=== PATIENT | female | born 1995 | race Native Hawaiian/Other Pacific Islander ===

== ENCOUNTER 2017-12-11 10:03 | Emergency (ER) | payer MEDICAID ==
[2017-12-11 11:16] VITALS: RESP 18; TEMP 98.4
--- NOTE | 2017-12-11 11:27 | ED PDOC ---
Arrival/HPI - General Chief Complaint: Female Genitourinary Time Seen by Provider: 12/11/17 11:08 Historian: Patient - History of Present Illness Narrative History of Present Illness (Text): 12/11/17 11:25 A 22 year old female, LMP was 11/04/17, currently , presents to the emergency department complaining of abdominal pain, lower back pain and vaginal bleeding. Reports spotting and abdominal cramping developed two days ago. Patient states heavy vaginal bleeding developed last night and used one pad since. Reports she went to a clinic 6 days ago, had a positive test and was told to follow up two weeks after. Reports she had one in the past, no history of any complications or tubal . Patient denies any nausea, dysuria or any other complaints at this time. Denies any history of hypertension and diabetes. Time/Duration: < week Symptom Onset: Sudden Symptom Course: Unchanged Activities at Onset: Rest Context: Home Past Medical History - Provider Review Nursing Documentation Reviewed: Yes - Psychiatric Hx Psychophysiologic Disorder: No Hx Substance Use: No Family/Social History - Physician Review Nursing Documentation Reviewed: Yes Family/Social History: No Known Family HX Smoking Status: Never Smoked Hx Alcohol Use: No Hx Substance Use: No Allergies/Home Meds Allergies/Adverse Reactions: Allergies No Known Allergies Allergy (Verified 12/11/17 10:17) Review of Systems - Review of Systems Constitutional: absent: Fatigue, Fevers Eyes: absent: Vision Changes ENT: absent: Hearing Changes Respiratory: absent: SOB Cardiovascular: absent: Chest Pain Gastrointestinal: Abdominal Pain. absent: Nausea, Hematochezia, Hematemesis Genitourinary Female: Vaginal Bleeding. absent: Dysuria, Hematuria, Urine Output Changes Musculoskeletal: Back Pain (lower) Skin: absent: Rash Neurological: absent: Headache, Focal Weakness Hemo/Lymphatic: absent: Easy Bleeding Psychiatric: absent: Depression Physical Exam - Physical Exam Narrative Physical Exam (Text): 12/11/17 11:24 Head: Atraumatic. Normocephalic. Eyes: PERRL. EOMI. Conjunctivae are not pale. ENT: Mucous membranes are moist and intact. Oropharynx is clear and symmetric. Neck: Supple. Full ROM. No JVD. No lymphadenopathy. Cardiovascular: Regular rate. Regular rhythm. No murmurs, rubs, or gallops. Distal pulses are 2+ and symmetric. Pulmonary/Chest: No evidence of respiratory distress. Clear to auscultation bilaterally. No wheezing, rales or rhonchi. Abdominal: mild mid suprapubic discomfort, with no RLQ or LLQ pain Pelvic: chaperoned by Dulce Guthrie- patient is noted to have no adnexal region tenderness; no active bleeding noted on external exam, no external lesions, small amount of blood on pad Back: No CVA tenderness. Extremities: No edema. No cyanosis. No clubbing. Full range of motion in all extremities. No calf tenderness. Skin: Skin is warm and dry. No petechiae. No purpura. Neurological: Alert, awake, and oriented to person, place, time, and situation. Normal speech. Motor and sensory exam intact. Psychiatric: Good eye contact. Normal interaction, affect, and behavior. Vital Signs Reviewed: Yes Vital Signs Temp Pulse Resp BP Pulse Ox 12/11/17 13:36 71 18 130/74 100 12/11/17 12:44 77 18 134/80 99 12/11/17 11:16 98.4 F 75 18 138/81 98 12/11/17 10:17 98.7 F 87 16 141/90 98 Temperature: Afebrile Blood Pressure: Normal Pulse: Regular Respiratory Rate: Normal Appearance: Positive for: Well-Appearing, Non-Toxic, Comfortable Pain Distress: None Mental Status: Positive for: Alert and Oriented X 3 Medical Decision Making ED Course and Treatment: 12/11/17 11:23 Impression: A 22 year old female, , with vaginal bleeding, abdominal pain, lower back pain. Differential Diagnosis included but are not limited to: miscarriage vs. intrauterine vs. ectopic Plan: -- labs -- OB pelvic ultrasound -- Urinalysis -- Reassess and disposition Progress Notes: Patient is positive for . Mild suprapubic pain noted on exam, no lateral lower quadrant pain. She is cv stable. On pelvic exam no active bleeding noted. 12/11/17 13:09 OB Pelvic Ultrasound Creator : Jesus Alberto Miller MD FINDINGS: UTERUS: There is a small collapsed irregular gestational sac. There is no pole and no yolk sac visualized. Uterus measures 11.02 x 5.43 x 5.15 cm. No mass CERVIX: 3.67 cm in length RIGHT OVARY: Measures 3.27 x 2.61 x 3.02 cm. No mass. Normal flow. There is a right ovarian cyst measuring 2.58 x 1.73 x 2.46 cm LEFT OVARY: Measures 2.8 x 1.78 x 1.46 cm. No mass. Normal flow. FREE FLUID: None. IMPRESSION: There is a small collapsed irregular gestational sac. There is no pole and no yolk sac visualized. Ultrasound and patient's labs reviewed with patient. Discussed with patient and possible miscarriage, vs early . No ectopic noted on ultrasound and patient with no pain on evaluation. UTI noted, will d/c with macrodantin. Afebrile, no nausea. NO cva tenderness on exam. Have advised follow-up in 2 days for repeat beta, advised follow-up with her special investigation unit investigator. 12/11/17 14:34 - Lab Interpretations Lab Results: 12/11/17 11:23 12/11/17 11:23 Lab Results 12/11/17 12:50: Blood Type Confirm A POSITIVE 12/11/17 11:23: Beta HCG, Quant 1124.80 H 12/11/17 11:23: Urine Color Red, Urine Appearance Cloudy, Urine pH 6.0, Ur Specific [place] 1.015, Urine Protein 100 H, Urine Glucose (UA) Negative, Urine Ketones Negative, Urine Blood Large H, Urine Nitrate Positive H, Urine Bilirubin Negative, Urine Urobilinogen 0.2, Ur Leukocyte Esterase Small H, Urine RBC Tntc, Urine WBC 1 - 3, Ur Epithelial Cells 1 - 3, Urine Bacteria Few, Urine HCG, Qual Positive 12/11/17 11:23: Sodium 140, Potassium 3.8, Chloride 104, Carbon Dioxide 24, Anion Gap 16, BUN 9, Creatinine 0.5 L, Est GFR ( Amer) > 60, Est GFR (Non -Af Amer) > 60, Random Glucose 95, Calcium 9.4, Total Bilirubin 0.5, AST 39 H, ALT 55, Alkaline Phosphatase 60, Total Protein 7.9, Albumin 4.3, Globulin 3.6, Albumin/Globulin Ratio 1.2 12/11/17 11:23: PT 10.9, INR 0.95, APTT 28.8 12/11/17 11:23: WBC 6.9, RBC 4.54, Hgb 12.9, Hct 39.1, MCV 86.1, MCH 28.4, MCHC 33.0, RDW 12.4, Plt Count 291, MPV 10.3, Gran % 62.6, Lymph % (Auto) 26.2, [place] % (Auto) 8.6 H, Eos % (Auto) 2.2, Baso % (Auto) 0.4, Gran # 4.31, Lymph # (Auto ) 1.8, [place] # (Auto) 0.6, Eos # (Auto) 0.2, Baso # (Auto) 0.03 12/11/17 10:30: Blood Type A POSITIVE, Antibody Screen Negative, BBK History Checked No verified bt I have reviewed the lab results: Yes - RAD Interpretation Radiology Orders: 12/11/17 11:59 OB TRANSVAGINAL [US] Stat - Scribe Statement The provider has reviewed the documentation as recorded by the Scribe Sara Dunlap Provider Scribe Attestation: All medical record entries made by the Scribe were at my direction and personally dictated by me. I have reviewed the chart and agree that the record accurately reflects my personal performance of the history, physical exam, medical decision making, and the department course for this patient. I have also personally directed, reviewed, and agree with the discharge instructions and disposition. Disposition/Present on Arrival - Present on Arrival Any Indicators Present on Arrival: No History of DVT/PE: No History of Uncontrolled Diabetes: No Urinary Catheter: No History of Decub. Ulcer: No History Surgical Site Infection Following: None - Disposition Have Diagnosis and Disposition been Completed?: Yes Diagnosis: Threatened miscarriage, UTI (urinary tract infection) during Disposition: HOME/ ROUTINE Disposition Time: 13:38 Patient Plan: Discharge Condition: GOOD Discharge Instructions (ExitCare): Urinary Tract Infection, Adult (DC), Threatened Miscarriage (DC) Additional Instructions: Follow-up with your special investigation unit investigator or return to the ER in 2 days for repeat "beta hcg levels" and reassessment. For any return or worsening of any pain, any increased bleeding or discomfort, any fevers, any lightheadedness or dizziness, get rechecked. Your beta hcg level is 1124 today. Please follow-up with your special investigation unit investigator as discussed. Take antibiotic as directed for urinary tract infection. HAVE YOUR BLOOD PRESSURE CLOSELY MONITORED DURING YOUR . For any headaches, chest pain, nausea/vomiting, shortness of breath or any new symptoms, get rechecked. Prescriptions: Nitrofurantoin Macrocrystal [Macrodantin] 100 mg PO BID #14 capsule [facility] - Follow up with primary Forms: DEQ (Japanese)
[2017-12-11 11:41] LABS: ALB/GLOB RATIO 1.2 (1.1-1.8); ALBUMIN 4.3 g/dL (3.0-4.8); ALT/SGPT 55 U/L (7-56); AST/SGOT 39 U/L (14-36); BLOOD UREA NITROGEN 9 mg/dL (7-21); CALCIUM 9.4 mg/dL (8.4-10.5); GFR AFRICAN-AMERICAN > 60; GFR NON-AFRICAN AMERICAN > 60
[2017-12-11 11:43] LABS: BASO # 0.03 K/mm3 (0.0-2.0); BASO % 0.4 % (0.0-3.0); EOS # 0.2 (0.0-0.7); EOS % 2.2 % (1.5-5.0); GRAN # 4.31 (1.4-6.5); GRAN % 62.6 % (50.0-68.0); HEMOGLOBIN 12.9 g/dL (12.0-16.0); LYMPH # 1.8 (1.2-3.4); LYMPH % 26.2 % (22.0-35.0); MEAN CELL VOLUME 86.1 fl (80.0-105.0); MEAN CORPUSCULAR HEMOGLOBIN 28.4 pg (25.0-35.0); MEAN PLATELET VOLUME 10.3 fl (7.0-11.0); MONO # 0.6 (0.1-0.6); MONO % 8.6 % (1.0-6.0); RBC 4.54 10^6/uL (3.5-6.1); RED CELL DISTRIBUTION WIDTH 12.4 % (11.5-14.5); WHITE BLOOD COUNT 6.9 10^3/ul (4.5-11.0)
[2017-12-11 11:44] LABS: URINE BILIRUBIN NEGATIVE (NEGATIVE); URINE BLOOD LARGE (NEGATIVE); URINE GLUCOSE (UA) NEGATIVE (NEGATIVE); URINE LEUKOCYTE ESTERASE SMALL Leu/uL (NEGATIVE); URINE NITRATE POSITIVE (NEGATIVE); URINE PROTEIN 100 mg/dL (<30 mg/dL); URINE UROBILINOGEN 0.2 E.U./dL (<1 E.U./dL)
[2017-12-11 11:45] LABS: URINE APPEARANCE CLOUDY (CLEAR); URINE COLOR RED (YELLOW)
[2017-12-11 11:47] LABS: INR 0.95 (0.93-1.08); PARTIAL THROMBOPLASTIN TIME 28.8 Seconds (25.1-36.5); PROTHROMBIN TIME 10.9 SECONDS (9.4-12.5)
[2017-12-11 11:48] LABS: HCG,QUALITATIVE URINE POSITIVE (NEGATIVE)
[2017-12-11 11:50] LABS: URINE BACTERIA FEW (NEG); URINE RBC TNTC /hpf (0-2)
--- NOTE | 2017-12-11 13:07 | US ---
PROCEDURE: OB Pelvic Ultrasound HISTORY: , bleeding COMPARISON: None available. FINDINGS: UTERUS: There is a small collapsed irregular gestational sac. There is no pole and no yolk sac visualized. Uterus measures 11.02 x 5.43 x 5.15 cm. No mass CERVIX: 3.67 cm in length RIGHT OVARY: Measures 3.27 x 2.61 x 3.02 cm. No mass. Normal flow. There is a right ovarian cyst measuring 2.58 x 1.73 x 2.46 cm LEFT OVARY: Measures 2.8 x 1.78 x 1.46 cm. No mass. Normal flow. FREE FLUID: None. OTHER FINDINGS: None. IMPRESSION: There is a small collapsed irregular gestational sac. There is no pole and no yolk sac visualized.
[2017-12-11 13:36] VITALS: BP 130/74; PULSE 71; O2SAT 100
== END 2017-12-11 13:56 | disposition home or self-care (01) ==
LOC: ED 10:03
DX: O23.40 Unspecified infection of urinary tract in pregnancy, unspecified trimester (principal); O20.0 Threatened abortion